=== PATIENT | female | born 1985 | race American Indian/Alaskan Native ===

== ENCOUNTER 2022-04-27 09:50 | Outpatient (CLI) | payer OTHER ==
[~2022-04-27 09:50] MED LIST: ZANTAC300 MG PO; ZOFRAN4 MG PO
== END 2022-04-27 11:15 | disposition home or self-care (01) ==
LOC: PRENATAL 09:50
PROVIDERS: ATTEND Obstetrics & Gynecology Maternal & Fetal Medicine
DX: Z76.1 Encounter for health supervision and care of foundling (principal)